=== PATIENT | female | born 1965 | race Caucasian/White ===

== ENCOUNTER 2019-10-25 08:43 | Day surgery (SDC) | payer OTHER ==
[~2019-10-25] VITALS: Ht 162.6 cm; Wt 94.8 kg
[~2019-10-25 08:43] MED LIST: CYTOMEL5 MCG PO; KELP150 MCG PO; LEVOTHYROXINE125 MCG PO; SELENIUM200 MCG PO
[2019-10-25] MEDS ORDERED: MOTRIN IB200 MG PO (16:24)
[2019-10-25] MEDS ORDERED: PERCOCET 7.5-31 EACH PO (16:24)
[2019-10-25] MEDS ORDERED: TYLENOL EXTRA500 MG PO (16:26)
--- NOTE | 2019-10-25 16:30 | NUR ---
10/25/19 1630 Candi Avila 1611- PT ARRIVES TO PACU AROUSABLE, NOT FOLLOWING COMMANDS AND DOES NOT GAG ON OPA IN PLACE. OPA LET IN PLACE AT THIS TIME. OXYGEN SAT HIGH 90'S TO 100% ON 10L VIA MASK. 1614- PT AROUSING AND TRYING TO PULL OUT OPA. OPA REMOVED. PT PULLING OFF HER OXYGEN MASK SAYING "GET THIS LOUD THING OUT OF HERE". OXYGEN MASK REMOVED. 1616- PT FELL BACK ASLEEP AND WENT APNEIC. PT AWOKEN AND INSTRUCTED TO TAKE DEEP BREATHS. PT IS ABLE TO DO THIS. OXYGEN SAT DROPPED TO 78% ON RA WITH THE DEEP BREATHS PT WAS ABLE TO INCREASE HER SAT TO THE LOW 90'S ON RA. PT PLACED ON CO2 MONITORING WELL.
--- NOTE | 2019-10-25 17:20 | NUR ---
PT ARRIVED FROM PACU. REPORT RECEIVED FROM KUSUM WOOD WHO REPORTS PT WAS GIVEN NARCAN AT 1700. PT EDUCATION DONE REGARDING 2 HOURS CONTINUE STAY FOR OXYGEN AND RESPIRATORY MONITORING. PT TRANSFERES SELF TO BED WITH STAND AND PIVOT. PT DENIES PAIN AND NAUSA AT THIS TIME. PULSE OX READS 97% ON NIXON AIR. RR = 12. FAMILY UPDATED AND AT BEDSIDE. LAP SITES SHOW SMALL AMOUNT OF RED DRAINAGE AFTER TRANSFER. STERI STRIPS INTACT. EDGES WELL APROXIMATED. PT OREINTED TO ALL AND AWAKE BUT BECOMES QUICKLY DROWSY. CPOX IN PLACE. SCD'S IN PLACE. CALL LIGHT WITHIN REACH.
--- NOTE | 2019-10-25 18:21 | NUR ---
VITALS AND ASSESSMENT DUE. THIS RN TO BEDSIDE. O2 SATURATION DROPING TO 81% WHILE SLEEPING. WHEN AWAKE O2 SATURATION MAINTAINS ABOVE 92%. PT PLACED ON 2L O2 BY NC TO COMPENSATE FOR O2 SATRUATION DROP WHILE SLEEPING. PT NOW MAINTING ABOVE 92% WHILE ON 2L O2 BY NC. PT DENIES PAIN AND NAUSEA. STERI STRIPS INTACT WITH NO NEW DRAINAGE. RR=12. AT BEDSIDE. CALL LIGHT WITHIN REACH.
--- NOTE | 2019-10-25 18:51 | NUR ---
THIS RN TO ROOM TO CHECK ON PT. PT RESTING WITH EYE CLOSED, RR = 10-12. PO2 AT 90% ON 2L O2 BY NC WHILE PT IS ASLEEP. PT AWAKENS TO MOVMENT IN ROOM. O2 INCREASES TO 97% ON 2L BY NC. PT CONTINUES TO DENY PAIN. NO ADDITIONAL REQUESTS OR COMPLAINTS AT THIS TIME. CALL LIGHT WITHIN REACH. AT BEDSIDE.
--- NOTE | 2019-10-25 21:00 | NUR ---
ASSESSMENT COMPLETE, VSS. PT DENIES PAIN. O2 SAT IN MID TO UPPER 90'S ON RA. LAP SITES X4 NOTED, STERI STRIPS IN PLACE. SCANT SANGUINEOUS SHADOWING NOTED. BOWEL TONES ACTIVE, PT DENIES NAUSEA, BUT HAD RECENT EMESIS. PT DENIES NEED FOR NAUSEA MEDICATION AND STATES, "I ACTUALLY FEEL GREAT". NO FURTHER NEEDS AT THIS TIME, IV FLUIDS INFUSING AT 85MLS/HR, SITE WNL. CALL LIGHT IN REACH.
--- NOTE | 2019-10-25 21:30 | NUR ---
SPOKE TO DR CARLISLE REGARDING PT UPDATE. INFORMED HIM OF PT'S VS, RECENT VOID, AND RECENT EMESIS. PER DR CARLISLE, PT WILL REMAIN IN HOSPITAL OVERNIGHT AND CONTINUE IV FLUIDS. PER ORESTES, PT MAY BE DISCHARGED IF TOLERATING PO INTAKE FOLLOWING BREAKFAST.
--- NOTE | 2019-10-25 23:30 | NUR ---
PT RESTING IN BED WITH EYES CLOSED. RESPIRATIONS EVEN AND UNLABORED, NO DISTRESS NOTED. O2 SAT ABOVE 90% ON RA. CALL LIGHT IN REACH.
--- NOTE | 2019-10-26 02:13 | NUR ---
PT RESTING IN BED, RESPIRATIONS EVEN AND UNLABORED. IV FLUIDS INFUSING AT 85MLS/HR, SITE WNL. NO DISTRESS NOTED. PT ON RA, O2 SAT 93%, HR IN 50'S. CALL LIGHT IN REACH.
--- NOTE | 2019-10-26 02:15 | NUR ---
ASSESSMENT COMPLETE, NO NEW CHANGES OR CONCERNS. PT AWAKE AND RESTING IN BED, O2 SAT ABOVE 90% ON RA. VSS, PT DENIES PAIN. PT DENIES NAUSEA, NO NEW PO INTAKE NOTED. IV FLUIDS INFUSING AT 85MLS/HR, SITE WNL. LAP SITES X4 NOTED, STERI STRIPS IN PLACE. SMALL AMOUNT OF DRY SANGUINEOUS SHADOWING NOTED. NO FURTHER NEEDS, CALL LIGHT IN REACH.
--- NOTE | 2019-10-26 04:34 | NUR ---
PT'S IV PUMP WAS BEEPING BUT IS INFUSING FINE NOW. SHE DENIES NEEDS AT THIS TIME. CALL LIGHT IS CLOSE.
--- NOTE | 2019-10-26 05:30 | NUR ---
NEW BAG OF IV FLUIDS HUNG AND INFUSING AT 85MLS/HR, SITE WNL.
--- NOTE | 2019-10-26 06:34 | NUR ---
PER DR CARLISLE, PT STAYED THE NIGHT DUE TO EMESIS. PT A/OX4, VSS. PT ON RA, O2 SAT WNL. PT DENIED PAIN ALL SHIFT. AMBULATES SBA, USES CALL LIGHT APPROPERIATELY. NO EMESIS SINCE, VERY LITTLE PO INTAKE THROUGHOUT NIGHT. IF PT TOLERATES BREAKFAST, FLUIDS CAN BE DISCONTINUED AND PT CAN THEN BE DISCHARGED.
--- NOTE | 2019-10-26 07:35 | NUR ---
RECIEVED BEDSIDE REPORT FROM KUSUM MEHTA. PT IS AWAKE AND ALERT IN BED. STATES NO PAIN, NO NAUSEA. NO ADDITIONAL VOMITING. PT IS READY FOR DISCHARGE.
--- NOTE | 2019-10-26 08:23 | NUR ---
PT DENIES PAIN, NAUSEA, OR VOMITING. STATES SHE HAD A RASH YESTERDAY, POSSIBLY FROM THE BP CUFF OR SURGICAL WASH.
--- NOTE | 2019-10-26 08:33 | NUR ---
PATIENT AMBULATED TO BATHROOM THIS MORNING. PATIENT STATES SHE FEELS GOOD AND IS ANXIOUS TO GET HOME TO "GET READY FOR SIRENA". PATIENT COMPLAINS OF A RASH ON HER LEFT HAND AND ON HER CHEST AND NECK AREA THAT APPEARS TO BE RED AND ITCHY. PATIENT STATES SHE THINKS IT IS "PROBABLY FROM THE SOAPS AND THINGS THEY USED BEFORE SURGERY". PATIENT WASHED WITH A WET WASH CLOTH AT THE SINK AND IS SITTING UP IN BED, WAITING FOR BREAKFAST. RN NOTIFIED. CALL LIGHT IN REACH. NO OTHER NEEDS AT THIS TIME.
--- NOTE | 2019-10-26 10:29 | NUR ---
DISCHARGE TEACHING COMPLETE. DISCUSSED FOLLOW UP. PT STATED SHE HAS 2 FOLLOW UP APPOINTMENTS, SHE WILL CALL THE OFFICE AND DETERMINE WHICH ONE IS BETTER FOR HER. VITALS COMPLETE. IV REMOVED, CATH INTACT. REMINTED PT NOT TO SCRUB AT STERI-STRIPS IN THE SHOWER, OK TO SHOWER TOMORROW AM. ALLOW STERI-STRIPS TO FALL OFF.
--- NOTE | 2019-10-26 11:07 | NUR ---
PT SITTING UP IN BED, ALERT, ORIENTED AND SUPPORTED BY HER AT . PT VERY UNHAPPY, THINGS WITH DC ARE NOT HAPPENING ON HER SCHEDULE. "NO ONE IS TELLING ME ANYTHING, I HAVEN'T SEEN THE DR AND I WAS SUPPOSED TO GO HOME LAST NIGHT". WORKED TO CALM HER AND TOLD HER I WOULD SEE WHAT I COULD DO. WAS CALM, HE STAYED OUT OF IT SO TO SPEAK. SHARED WITH KUSUM RUSSELL HER FEELINGS. SHE WAS WELL AWARE. DC HAD STARTED, PHARMACY HAD BEEN IN BUT IT JUST WASN'T HAPPENING PT THOUGHT IT SHOULD. DR CARLISLE WENT IN RIGHT AFTER ME, WILL FOLLOW NEEDED
--- NOTE | 2019-10-31 21:30 | OR ---
[facility] [address], [place] [address] Signed DATE OF OPERATION: 10/25/2019 SURGEON: July Carlisle MD PREOPERATIVE DIAGNOSIS: Symptomatic gallstones. POSTOPERATIVE DIAGNOSIS: Chronic calculous cholecystitis. PROCEDURES: 1. Laparoscopic cholecystectomy with intraoperative cholangiogram. 2. Surgeon-directed fluoroscopy. ANESTHESIA: General endotracheal; July Duncan CRNA, and local 10 mL of 0.25% Marcaine with epinephrine. INDICATION: This 53-year-old woman is a patient of KEVIN Maravilla, of [facility]. The patient has had symptoms highly suggestive of biliary disease. She was bothered with symptoms in early May with four days of persistent and perpetual abdominal pain, which ultimately resolved. She underwent a CCK-HIDA test on August 06, 2019 at [facility]. She was advised that the "gallbladder was not working." Upon review of the actual report, there was some confusion and likely an inaccurate report was delivered. Specifically, she was told the gallbladder was not working and in fact, there was no gallbladder filling. Interpretation also included a phrase, the gallbladder was normal. A CCK was not administered. Indeed, she had a classic positive HIDA scan without CCK. She has an extensive family history of biliary disease including cholecystectomy in two daughters and her sister and mother. An ultrasound was thus performed under my direction, which showed multiple stones and debris. She is admitted at this time to undergo cholecystectomy preferred by laparoscopic approach, understanding risks of bleeding, infection, bile duct injury, need for open procedure, and of course failure to cure her symptoms. She understands that and she wished to proceed. FINDINGS: The gallbladder was indeed chronically inflamed. The gallbladder is partly intrahepatic. The gallbladder had a distorted appearance in the lower aspect in the infundibulum, but was ultimately straightened and opt for cholecystectomy without problem. Cholangiogram was normal. The gallbladder once opened had multiple Electronically Signed By: JULY CARLISLE MD 10/31/19 2130 PATIENT NAME: YUDITH LYNCH OPERATIVE REPORT DATE OF : 63 REPORT #: [id number] PHYSICIAN: JULY CARLISLE MD PCP: Gely Phillips REPORT IS CONFIDENTIAL AND NOT TO BE RELEASED WITHOUT AUTHORIZATION [facility] [address], [place] [address] Signed sludge-like bile as well as very small stone debris. DESCRIPTION OF PROCEDURE: The patient was brought to the operating room, given a general endotracheal anesthetic. Preoperative antibiotic Ancef was given. Sequential compression device stockings used and heparin subcutaneously administered. After satisfactory general endotracheal anesthesia, the abdomen was prepared with chlorhexidine solution and draped sterilely. An infraumbilical incision was made and using an open Miguel cannula technique, pneumoperitoneum was achieved to a level of 14 mmHg of carbon dioxide gas. Intraabdominal inspection showed no sign of ascites or carcinomatosis. The gallbladder looked chronically inflamed and somewhat distended. Three additional trocars were placed in usual configuration in the subxiphoid, right midclavicular, and right anterior axillary line. The gallbladder was elevated cephalad and retracted laterally. Dissection was begun on the medial aspect of the infundibulum. There were adhesions of the duodenum to the infundibulum. These were taken down with sharp dissection and blunt dissection. This revealed a redundant cap of the infundibulum, for which, various maneuvers were required ultimately identifying it and allowing it to be more fully extended and defining the cystic duct more fully. The cystic artery was identified and clipped. A clip was applied across gallbladder cystic duct junction and a transverse choledochotomy made in the cystic duct. Egress of clear bile was noted upon retrograde milking of the duct. Using the Perez type cholangiocatheter, intraoperative cholangiography was undertaken showing free flow of contrast in biliary tree with prompt emptying into the duodenum. As there was not complete retrograde filling, morphine 4 mg in total was administered to allow for ampullary spasm, which did indeed show better arborization of the biliary radicles without sign of abnormality. The catheter was removed. The cystic duct was triply clipped and divided. The gallbladder was then dissected free in a retrograde fashion. Some spillage of dark black bile was noted. This was later suctioned free. The gallbladder was fully excised. The gallbladder placed in an Endobag and extracted through the infraumbilical port site without problem. This was opened on the back table and found to have thick tar like sludge with stone debris, very small stones, indeed. The mucosa showed no sign of malignancy. Irrigation was undertaken in subhepatic space. There was no sign of bile leak, bleeding or other problems. Excess irrigation fluid was suctioned free and the trocars removed under direct visualization. There was no sign of bleeding. The infraumbilical fascial incision was reapproximated with interrupted 0 Vicryl suture as well as a running 0 PDS suture. All wounds were copiously irrigated. Marcaine 0.25% with epinephrine was injected locally. The skin was then closed with interrupted 3-0 Vicryl. Steri-Strips were applied. The patient was ultimately extubated and transferred to recovery room in good condition having suffered no complications. Sponge, needle, and instruments counts reported as correct x3. Electronically Signed By: JULY CARLISLE MD 10/31/19 6393 PATIENT NAME: YUDITH LYNCH OPERATIVE REPORT DATE OF : 63 REPORT #: [id number] PHYSICIAN: JULY CARLISLE MD PCP: Gely Phillips REPORT IS CONFIDENTIAL AND NOT TO BE RELEASED WITHOUT AUTHORIZATION [address], [place] [address] Signed MD JEANNETTE Rose/SALVADOR /[id number] cc: KEVIN Danielle Copies: Gely Phillips ~ Electronically Signed By: JULY CARLISLE MD 10/31/19 2130 PATIENT NAME: YUDITH LYNCH OPERATIVE REPORT DATE OF : 63 REPORT #: [id number] PHYSICIAN: JULY CARLISLE MD PCP: Gely Phillips REPORT IS CONFIDENTIAL AND NOT TO BE RELEASED WITHOUT AUTHORIZATION
== END 2019-10-26 10:30 | disposition home or self-care (01) ==
LOC: DS 08:43 → OPS 08:43 → DS 09:00 → OPS 10:45 → MS 17:24 → OPS 10-26 10:30
PROVIDERS: Surgery
PROC: BF13YZZ Fluoroscopy of Gallbladder and Bile Ducts using Other Contrast (ICD-10-PCS; 2019-10-25)
PROC: 0FT44ZZ Resection of Gallbladder, Percutaneous Endoscopic Approach (ICD-10-PCS; principal; 2019-10-25 10:45)
DX: K80.10 Calculus of gallbladder with chronic cholecystitis without obstruction (principal); E03.9 Hypothyroidism, unspecified; E04.1 Nontoxic single thyroid nodule; F41.9 Anxiety disorder, unspecified; K21.9 Gastro-esophageal reflux disease without esophagitis; E66.01 Morbid (severe) obesity due to excess calories; Z88.5 Allergy status to narcotic agent; Z68.36 Body mass index [BMI] 36.0-36.9, adult; Z84.89 Family history of other specified conditions; Z90.711 Acquired absence of uterus with remaining cervical stump; Z79.82 Long term (current) use of aspirin; Z79.899 Other long term (current) drug therapy
CPT/HCPCS: 00790; 74300; J0330; J0690; J1100; J1644; J1885; J2250; J2270; J2310; J2405; J2704; J7121; Q9967